=== PATIENT | female | born 1990 | race Caucasian/White ===

== ENCOUNTER → 2023-08-06 17:14 | Outpatient (BNVA) | payer OTHER, SELFPAY | PROVIDERS: Visit Provider Emergency Medicine | DX: R50.9 Fever, unspecified (principal); J02.9 Acute pharyngitis, unspecified | CPT/HCPCS: 87400; 87880 ==

== ENCOUNTER 2025-03-12 12:37 | Outpatient (CLI) | payer OTHER, SELFPAY ==
--- NOTE | 2025-03-12 13:15 | USR_ITS ---
PROCEDURE INFORMATION: Exam: US Soft Tissue Head and Neck, Thyroid Exam date and time: 03/12/2025 1:14 PM Age: 34 years old Clinical indication: Condition or disease; Thyroid disorder; Other: Nodule; Additional info: Thyroid nodule, please include tirads TECHNIQUE: Imaging protocol: Real-time ultrasound scan of the neck with image documentation. Exam focused on the thyroid. COMPARISON: No relevant prior studies available. FINDINGS: The right lobe measures 5.6 x 2.0 x 1.7 cm. The left lobe measures 4.6 x 1.8 x 1.9 cm. The isthmus measures 3 mm in thickness. Thyroid architecture is heterogeneous. There is a 1.0 x 0.7 x 0.4 cm spongiform nodule in the midpole of the right lobe. TR 1 benign. There is a mixed density mostly solid nodule in the lower pole measuring 1.1 x 0.9 x 0.8 cm. Solid components appear isoechoic with surrounding normal thyroid tissue. TR 2 benign. There is a markedly hypoechoic nodule in the upper pole of the left lobe measuring 0.8 x 1.0 x 0.5 cm. TR 3 mildly suspicious. US/US thyroid 35711 IMPRESSION: Thyroid nodules as described above. No follow-up is recommended based on morphology and TI rads recommendations.
== END 2025-03-12 12:38 | disposition home or self-care (01) ==
PROVIDERS: Visit Provider Internal Medicine
DX: E04.1 Nontoxic single thyroid nodule (principal)
CPT/HCPCS: 76536

== ENCOUNTER 2025-03-21 10:48 | Outpatient (CLI) | payer OTHER, SELFPAY ==
[2025-03-21 12:33] LABS: Free T4 Free Thyroxine 1.33 ng/dL (0.82-1.77); Thyroid Stimulating Hormone 3.99 uIU/mL (0.27-4.20)
== END 2025-03-21 10:49 | disposition home or self-care (01) ==
PROVIDERS: Visit Provider Internal Medicine
DX: E07.9 Disorder of thyroid, unspecified (principal)
CPT/HCPCS: 36415; 84439; 84443; 84480